=== PATIENT | female | born 1995 | race American Indian/Alaskan Native ===

== ENCOUNTER 2019-09-22 12:06 | Emergency (ER) | payer SELFPAY ==
--- NOTE | 2019-09-22 12:58 | Event Note ---
ED Screening Note ED Screening Note: 23 yo female 19 weeks +back pain This initial assessment/diagnostic orders/clinical plan/treatment(s) is/are subject to change based on patients health status, clinical progression and re- assessment by fellow clinical providers in the ED. Further treatment and workup at subsequent clinical providers discretion. Patient/guardian urged not to elope from the ED as their condition may be serious if not clinically assessed and managed. Initial orders include: UA
[2019-09-22 13:04] VITALS: BP 119/73
[2019-09-22] MEDS ORDERED: ACETAMINOPHEN 500 MG TAB PO ONE (14:42)
[2019-09-22 14:51] LABS: Bacteria,Urine 2+ /HPF (Negative); Mucus,Urine 2+ /HPF
[2019-09-22 15:13] LABS: Hematocrit 31.9 % (30.3-42.9); Hemoglobin 10.8 gm/dl (10.1-14.3); Mean Corpuscular HGB Conc 34 % (30-34); Mean Corpuscular Volume 85 fl (79-97); Platelet Count 179 K/mm3 (140-440); Red Blood Count 3.75 M/mm3 (3.65-5.03); Red Cell Distribution Width 13.7 % (13.2-15.2)
[2019-09-22 15:20] LABS: Color,Urine Yellow (Yellow)
[2019-09-22 15:21] LABS: Bilirubin,Urine Negative (Negative); Blood,Urine Negative (Negative); Urobilinogen,Urine < 2.0 mg/dL (<2.0)
[2019-09-22 15:33] LABS: BUN/Creatinine Ratio 17; Blood Urea Nitrogen 10 mg/dL (7-17); Calcium 8.5 mg/dL (8.4-10.2); Hemolysis Index 2
[2019-09-22] MEDS ORDERED: SODIUM CHLORIDE 0.9% 1000 ML 1,000 ML IV ONE (15:46)
[2019-09-22 16:25] LABS: Anisocytosis 1+; Basophils % (Manual) 0 % (0.0-1.8); Eosinophils % (Manual) 0 % (0.0-4.3); Platelet Estimate Consistent w Auto; Total Cells Counted 100
--- NOTE | 2019-09-22 16:51 | Emergency Department Report ---
ED HPI - General Chief complaint: Back Pain/Injury Stated complaint: BACK PAIN/HEADACHE/19WEEKS PREG Time Seen by Provider: 09/22/19 14:34 Source: patient Mode of arrival: Ambulatory Limitations: No Limitations - History of Present Illness Initial comments: This is a 23-year-old female nontoxic, well nourished in appearance, no acute signs of distress presents to the ED with c/o of lower back pain. Patient that she is currently 19 weeks . Denies any pelvic, abdominal pain or vaginal bleeding. Patient denies any other complaints. Patient denies any radiation of pain. Patient denies any trauma. Denies any bladder or bowel ins tability. Patient denies any urinary symptoms. Denies any fever, chills, nausea, vomiting, headache, stiff neck, chest pain or shortness of breath. Patient denies any numbness or tingling. Denies any allergies. Denies significant past medical history. Patient stated she does see [facility] MD Complaint: other (Back pain) -: days(s) Location: other (Lumbar spine) Radiation: none Severity: mild Severity scale (0 -10): 8 Quality: cramping, aching Consistency: intermittent Improves with: rest Worsens with: movement Associated symptoms: denies: nausea/vomiting, vaginal bleeding, vaginal discharge, abdominal pain, dysuria, headache, vision changes, malaise, dysparuenia, rash, seizure, shortness of breath, syncope, weakness - Related Data Previous Rx's Medication Instructions Recorded Last Taken Type Nitrofurantoin Iroquois/M-Cryst 100 mg PO Q12HR #14 capsule 09/22/19 Unknown Rx [Macrobid CAP] Allergies Allergy/AdvReac Type Severity Reaction Status Date / Time No Known Allergies Allergy Unverified 09/22/19 12:09 ED Review of Systems ROS: Stated complaint: BACK PAIN/HEADACHE/19WEEKS PREG Other details as noted in HPI Constitutional: denies: chills, fever Eyes: denies: eye pain, eye discharge, vision change ENT: denies: ear pain, throat pain Respiratory: denies: cough, shortness of breath, wheezing Cardiovascular: denies: chest pain, palpitations Endocrine: no symptoms reported Gastrointestinal: denies: abdominal pain, nausea, diarrhea Genitourinary: denies: urgency, dysuria, discharge Musculoskeletal: back pain. denies: joint swelling, arthralgia Skin: denies: rash, lesions Neurological: denies: headache, weakness, paresthesias Psychiatric: denies: anxiety, depression Hematological/Lymphatic: denies: easy bleeding, easy bruising ED Past Medical Hx - Past Medical History Previous Medical History?: No - Surgical History Past Surgical History?: No - Social History Smoking Status: Never Smoker Substance Use Type: None - Medications Home Medications: Home Medications Medication Instructions Recorded Confirmed Last Taken Type Nitrofurantoin Iroquois/M-Cryst 100 mg PO Q12HR #14 capsule 09/22/19 Unknown Rx [Macrobid CAP] ED Physical Exam - General Limitations: No Limitations General appearance: alert, in no apparent distress - Head Head exam: Present: atraumatic, normocephalic - Eye Eye exam: Present: normal appearance - Neck Neck exam: Present: normal inspection, full ROM. Absent: tenderness, meningismus, lymphadenopathy - Respiratory Respiratory exam: Present: normal lung sounds bilaterally. Absent: respiratory distress, wheezes, rales, rhonchi, stridor, chest wall tenderness, accessory muscle use, decreased breath sounds, prolonged expiratory - Cardiovascular Cardiovascular Exam: Present: regular rate, normal rhythm, normal heart sounds. Absent: bradycardia, tachycardia, irregular rhythm, systolic murmur, diastolic murmur, rubs, gallop - GI/Abdominal GI/Abdominal exam: Present: soft, normal bowel sounds. Absent: distended, tenderness, guarding, rebound, rigid, diminished bowel sounds - Extremities Exam Extremities exam: Present: normal inspection, full ROM - Back Exam Back exam: Present: normal inspection, full ROM, paraspinal tenderness (Lumbar paraspinal). Absent: tenderness, CVA tenderness (R), CVA tenderness (L), muscle spasm, vertebral tenderness, rash noted - Expanded Back Exam Expanded Back exam: Absent: saddle anesthesia Back exam: Negative Straight Leg Raising: Left, Right - Neurological Exam Neurological exam: Present: alert, oriented X3, normal gait - Psychiatric Psychiatric exam: Present: normal affect, normal mood - Skin Skin exam: Present: warm, dry, intact, normal color. Absent: rash ED Course Vital Signs 09/22/19 13:02 Temperature 98.6 F Pulse Rate 90 Respiratory 18 Rate Blood Pressure 119/73 O2 Sat by Pulse 98 Oximetry - Reevaluation(s) Reevaluation #1: 02/17/20 16:51 Patient is speaking in full sentences with no signs of distress noted. ED Medical Decision Making - Lab Data Result diagrams: 09/22/19 14:51 09/22/19 14:51 - Medical Decision Making This is a 23-year-old female that presents with back pain during . Patient is stable was examined by me. There is no spinal tenderness. There is no cauda equina syndrome during examination. No bladder or bowel instability. Normal abdominal exam. US OB obtained and dictated by the radiologist. Patient notified of the US report with no questions noted by the patient. Ua obtained. Quantative serum test obtained. Labs within normal limits. Patient was instructed f/u with [facility] in 3-5 days or if symptoms worsen and continue return to emergency room as soon as possible. At time of discharge, the patient does not seem toxic or ill in appearance. No acute signs of distress noted. Patient agrees to discharge treatment plan of care. No further questions noted by the patient. This chart is dictated with using [employer] Dictation Program Critical care attestation.: If time is entered above; I have spent that time in minutes in the direct care of this critically ill patient, excluding procedure time. ED Disposition Clinical Impression: Back pain during UTI (urinary tract infection) Qualifiers: Urinary tract infection type: acute cystitis Hematuria presence: without hematuria Qualified Code(s): N30.00 - Acute cystitis without hematuria Disposition: - TO HOME OR SELFCARE Is pt being admited?: No Does the pt Need Aspirin: No Condition: Stable Instructions: Urinary Tract Infection in Women (ED) Additional Instructions: Follow-up with a OBGYN doctor in 3-5 days or if symptoms worsen and continue return to the emergency department as soon as possible. Prescriptions: Nitrofurantoin Iroquois/M-Cryst [Macrobid CAP] 100 mg PO Q12HR #14 capsule Referrals: GODFREY THOMSON MD [Primary Care Provider] - 3-5 Days PRIMARY CAREMD [Referring] - 3-5 Days KIM SÁNCHEZ MD [Staff Physician] - 3-5 Days [facility] [Provider Group] - 3-5 Days Forms: Work/School Release Form(ED)
--- NOTE | 2019-09-22 19:07 | Ultrasound Report ---
TRANSABDOMINAL AND TRANSVAGINAL OB PELVIC ULTRASOUND INDICATION / CLINICAL INFORMATION: Back pain. COMPARISON: None available. FINDINGS: Transabdominal: There is a single intrauterine with an estimated sonographic gestational ag e of 18 weeks 5 days and an EDC of 02/18/2020. Clinical dates are 19 weeks 0 days. The heart ra te is 135 bpm. presentation is breech. Amniotic fluid volume is normal. The placenta is located posteriorly, is grade 0 and is free of the os. The uterine cervix measures 3.8 cm in length. There is mild funneling with the internal os measuring 5.3 mm in width. There is a minimal amount of fluid in the endocervical canal. The intracranial and spinal anatomy are normal. The stomach, kidneys, urinary bladder and diaphragm are normal. A 4 chambered heart view is seen. There is a three-vessel umbilical cord which inserts normally on t he abdomen. No anomalies are identified. Neither ovary is seen. IMPRESSION: 1. Single viable 18 week 5 day intrauterine . 2. The cervix measures 3.8 cm in length and demonstrates slight funneling with minimal fluid in the e ndocervical canal. No evidence of oligohydramnios. Signer Name: Konstantin Eason MD Signed: 09/22/2019 7:02 PM Workstation Name: [id number]
== END 2019-09-22 19:15 | disposition home or self-care (01) ==
LOC: ED 12:06
DX: O23.42 Unspecified infection of urinary tract in pregnancy, second trimester (principal); Z3A.19 19 weeks gestation of pregnancy
CPT/HCPCS: 36415; 76805; 76817; 80048; 81001; 84702; 85007; 85025; 87086; 99284; J7030

== ENCOUNTER 2021-01-17 15:04 | Observation (INO) | payer MEDICAID ==
[2021-01-17] MEDS ORDERED: SIMETHICONE 80 MG CHEW TAB PO PRN (15:21)
[2021-01-17] MEDS ORDERED: DOCUSATE SODIUM 100 MG CAP PO PRN (15:21)
[2021-01-17] MEDS ORDERED: diphenhydrAMINE 25 MG CAP PO PRN (15:21)
[2021-01-17] MEDS ORDERED: SODIUM CHLORIDE NASAL SPRAY 44ML NS PRN (15:21)
[2021-01-17] MEDS ORDERED: ONDANSETRON 4 MG/2 ML INJ IV PRN (15:21)
[2021-01-17] MEDS ORDERED: ACETAMINOPHEN 325 MG TAB PO PRN (15:21)
[2021-01-17] MEDS ORDERED: BETAMET ACET/BETAMET NA PH 6 MG/ML INJ 5 ML MDV IM SCH (16:00)
[2021-01-17 18:52] LABS: Basophils % (Auto) 0.3 % (0.0-1.8); Eosinophils % (Auto) 0.4 % (0.0-4.3); Hematocrit 30.5 % (30.3-42.9); Hemoglobin 10.3 gm/dl (10.1-14.3); Lymphocytes # (Auto) 1.5 K/mm3 (1.2-5.4); Lymphocytes % (Auto) 15.4 % (13.4-35.0); Mean Corpuscular HGB Conc 34 % (30-34); Mean Corpuscular Volume 85 fl (79-97); Monocytes # (Auto) 0.6 K/mm3 (0.0-0.8); Monocytes % (Auto) 6.4 % (0.0-7.3); Platelet Count 239 K/mm3 (140-440); Red Cell Distribution Width 13.5 % (13.2-15.2)
[2021-01-17] MEDS ORDERED: LACTATED RINGERS 1,000 ML IV ONE (19:05)
--- NOTE | 2021-01-17 22:18 | History and Physical Report ---
History of Present Illness Date of examination: 01/17/21 Date of admission: 01/17/21 15:21 Chief complaint: sent from [facility] clinic for elevated MCA History of present illness: Pt is a 25 year old CHRISTINE 03/09/21 at 32w5d presents from [facility] with report from Dr Arora of elevated MCA doppler and suspicion of anemia with instructions to administer two doses of betamethasone while on continuous monitoring, then return to [facility] on 01/19/21 for repeat MCA doppler study. She reports movement, and denies vaginal bleeding. She does report irregular contractions. She has had care at [facility] with comanagement by [facility] secondary to alpha thalassemia carrier status (and father of baby also an alpha thalassemia carrier, declines amniocentesis), h/o preeclampsia in prior . Her GBS status is unknown. Past History Past Medical History: other (per HPI, h/o preeclampsia ) Past Surgical History: denies: no surgical history Family/Genetic History: diabetes Social history: no significant social history - Obstetrical History Expected Date of Delivery: 03/09/21 Actual Gestation: 32 Week(s) 5 Day(s) : 2 Para: 1 Hx # Term Pregnancies: 1 Number of Pregnancies: 0 Spontaneous Abortions: 0 Induced : 0 Number of Living Children: 1 Medications and Allergies Allergies Allergy/AdvReac Type Severity Reaction Status Date / Time No Known Allergies Allergy Unverified 09/22/19 12:09 Home Medications Medication Instructions Recorded Confirmed Last Taken Type Aspirin [Adult Aspirin] 81 mg PO 01/17/21 01/15/21 22:00 History 1 Vit-Fe Fumar-FA [ 1 tab PO QDAY 01/17/21 01/17/21 01/16/21 10:00 History Vitamin] Promethazine [Phenergan] 25 mg PO Q8HR PRN 01/17/21 01/17/21 01/15/21 22:00 History Vitamin B-6 1 tab PO DAILY 01/17/21 01/17/21 01/17/21 10:00 History Active Meds: Active Medications Acetaminophen (Acetaminophen 325 Mg Tab) 650 mg PO Q4H PRN PRN Reason: Pain MILD(1-3)/Fever >100.5/DUMONT Betamethasone Acet/Betameth SodPhos (Betamet Acet/Betamet Na Ph 6 Mg/Ml Inj 5 Ml Mdv) 12 mg IM Q24H FERDINAND Stop: 01/18/21 16:01 Last Admin: 01/17/21 18:17 Dose: 12 mg Documented by: Diphenhydramine HCl (Diphenhydramine 25 Mg Cap) 25 mg PO Q6H PRN PRN Reason: Itching Docusate Sodium (Docusate Sodium 100 Mg Cap) 100 mg PO Q12H PRN PRN Reason: Constipation Multivitamins/Iron/Calcium ( Pjj90-Qa Fumarate-Folic Acid Vit Tab) 1 each PO QDAY FERDINAND Ondansetron HCl (Ondansetron 4 Mg/2 Ml Inj) 4 mg IV Q6H PRN PRN Reason: Nausea And Vomiting Simethicone (Simethicone 80 Mg Chew Tab) 80 mg PO Q6H PRN PRN Reason: Gas pain Sodium Chloride (Sodium Chloride Nasal [place] 44ml) 2 spray NS Q4H PRN PRN Reason: Congestion Review of Systems All systems: negative - Vital Signs Vital signs: Vital Signs Pulse BP 110 H 127/69 01/17/21 15:50 01/17/21 15:50 Temp Pulse Resp BP Pulse Ox 99.3 F 85 18 124/78 98 01/17/21 17:47 01/17/21 22:11 01/17/21 17:47 01/17/21 19:12 01/17/21 22:11 - Physical Exam Breasts: Positive: deferred Abdomen: Positive: soft (gravid, obese ) Uterus: Positive: enlarged (gravid ) Extremities: Positive: normal - Obstetrical FHR: auscultation normal Uterine Contraction Pattern: Absent Uterine Tone Measurement Phase: Resting Results Result Diagrams: 01/17/21 18:27 Abnormal lab results 01/17/21 Range/Units 18:27 RBC 3.60 L (3.65-5.03) M/mm3 Seg Neutrophils % 77.5 H (40.0-70.0) % All other labs normal. Assessment and Plan A: IUP at 32w5d Elevated MCA doppler today at [facility] office Pt and her partner are alpha thalassemia carriers with suspicion for anemia, pt declines amniocentesis h/o preeclampsia in prior Obesity GBS status unknown P: Admit to antepartum service Administer 2 doses of betamethasone per protocol Continuous monitoring Plan for discharge after both doses of betamethasone with reassuring status and repeat MCA dopplers at [facility] on Sun01/19/21
[2021-01-17 23:02] LABS: Bacteria,Urine 2+ /HPF (Negative); Bilirubin,Urine NEG (Negative); Blood,Urine NEG (Negative); Color,Urine Yellow (Yellow); Hyaline Casts,Urine 1 /LPF; Mucus,Urine FEW /HPF; Protein,Urine <15 mg/dL mg/dL (Negative); Urobilinogen,Urine < 2.0 mg/dL (<2.0)
[2021-01-18] MEDS ORDERED: PRENATAL VIT27-FE FUMARATE-FOLIC ACID VIT TAB PO SCH (10:00)
[2021-01-18 13:01] VITALS: BP 127/72
--- NOTE | 2021-01-18 13:01 | Progress Note ---
Assessment and Plan - Patient Problems (1) Gestational hypertension Current Visit: No Status: Acute Plan to address problem: patient will schedule followup with [facility] this week will come back for 2nd dose Subjective - Subjective Date of service: 01/18/21 Interval history: Patient without complaints. Patient is receiving 2nd steroid dose this afternoon. Patient reports: no new complaints Objective - Vital Signs Vital Signs: Vital Signs - 12hr 01/18/21 01/18/21 01/18/21 01:01 01:06 01:11 Temperature Pulse Rate 86 87 81 Respiratory Rate O2 Sat by Pulse 98 97 97 Oximetry 01/18/21 01/18/21 01/18/21 01:16 01:21 01:26 Temperature Pulse Rate 77 79 90 Respiratory Rate O2 Sat by Pulse 97 97 97 Oximetry 01/18/21 01/18/21 01/18/21 01:31 01:36 01:41 Temperature Pulse Rate 81 79 84 Respiratory Rate O2 Sat by Pulse 99 96 97 Oximetry 01/18/21 01/18/21 01/18/21 01:46 01:51 01:56 Temperature Pulse Rate 84 86 82 Respiratory Rate O2 Sat by Pulse 97 97 97 Oximetry 01/18/21 01/18/21 01/18/21 02:01 02:06 02:11 Temperature Pulse Rate 86 85 90 Respiratory Rate O2 Sat by Pulse 97 97 97 Oximetry 01/18/21 01/18/21 01/18/21 02:16 02:21 02:26 Temperature Pulse Rate 86 84 82 Respiratory Rate O2 Sat by Pulse 98 97 97 Oximetry 01/18/21 01/18/21 01/18/21 02:31 02:36 02:41 Temperature Pulse Rate 84 90 97 H Respiratory Rate O2 Sat by Pulse 95 97 98 Oximetry 01/18/21 01/18/21 01/18/21 02:46 02:51 02:56 Temperature Pulse Rate 90 85 87 Respiratory Rate O2 Sat by Pulse 97 97 98 Oximetry 01/18/21 01/18/21 01/18/21 03:01 03:06 03:11 Temperature Pulse Rate 87 92 H 89 Respiratory Rate O2 Sat by Pulse 98 99 98 Oximetry 01/18/21 01/18/21 01/18/21 03:16 03:21 03:26 Temperature Pulse Rate 86 80 78 Respiratory Rate O2 Sat by Pulse 98 97 97 Oximetry 01/18/21 01/18/21 01/18/21 03:31 03:36 03:41 Temperature Pulse Rate 94 H 83 92 H Respiratory Rate O2 Sat by Pulse 97 97 96 Oximetry 01/18/21 01/18/21 01/18/21 03:46 03:51 03:56 Temperature Pulse Rate 84 90 92 H Respiratory Rate O2 Sat by Pulse 96 96 97 Oximetry 01/18/21 01/18/21 01/18/21 04:01 04:06 04:11 Temperature Pulse Rate 92 H 103 H 79 Respiratory Rate O2 Sat by Pulse 96 98 97 Oximetry 01/18/21 01/18/21 01/18/21 04:16 04:21 04:26 Temperature Pulse Rate 82 81 77 Respiratory Rate O2 Sat by Pulse 97 96 97 Oximetry 01/18/21 01/18/21 01/18/21 04:31 04:36 04:41 Temperature Pulse Rate 78 81 82 Respiratory Rate O2 Sat by Pulse 98 96 96 Oximetry 01/18/21 01/18/21 01/18/21 04:46 04:51 04:55 Temperature Pulse Rate 87 96 H 102 H Respiratory Rate O2 Sat by Pulse 97 99 88 Oximetry 01/18/21 01/18/21 01/18/21 04:56 05:01 05:06 Temperature Pulse Rate 95 H 77 75 Respiratory Rate O2 Sat by Pulse 82 L 100 99 Oximetry 01/18/21 01/18/21 01/18/21 05:11 05:16 05:21 Temperature Pulse Rate 75 87 82 Respiratory Rate O2 Sat by Pulse 99 98 99 Oximetry 01/18/21 01/18/21 01/18/21 05:26 05:31 05:36 Temperature Pulse Rate 78 84 78 Respiratory Rate O2 Sat by Pulse 98 98 99 Oximetry 01/18/21 01/18/21 01/18/21 05:41 05:46 05:51 Temperature Pulse Rate 81 92 H 79 Respiratory Rate O2 Sat by Pulse 97 99 98 Oximetry 01/18/21 01/18/21 01/18/21 05:56 06:01 06:06 Temperature Pulse Rate 88 84 63 Respiratory Rate O2 Sat by Pulse 99 98 98 Oximetry 01/18/21 01/18/21 01/18/21 06:11 06:16 06:21 Temperature Pulse Rate 62 80 75 Respiratory Rate O2 Sat by Pulse 100 98 97 Oximetry 01/18/21 01/18/2101/18/21 06:26 06:31 06:36 Temperature Pulse Rate 72 67 76 Respiratory Rate O2 Sat by Pulse 99 100 98 Oximetry 01/18/21 01/18/21 01/18/21 06:41 06:46 06:51 Temperature Pulse Rate 76 83 84 Respiratory Rate O2 Sat by Pulse 98 99 98 Oximetry 01/18/21 01/18/21 01/18/21 06:56 07:01 07:06 Temperature Pulse Rate 86 79 79 Respiratory Rate O2 Sat by Pulse 99 99 100 Oximetry 01/18/21 01/18/21 01/18/21 07:10 07:11 07:16 Temperature 98.1 F Pulse Rate 64 78 Respiratory 18 Rate O2 Sat by Pulse 99 98 Oximetry 01/18/21 01/18/21 01/18/21 07:21 07:26 07:31 Temperature Pulse Rate 84 77 71 Respiratory Rate O2 Sat by Pulse 97 100 100 Oximetry 01/18/21 01/18/21 01/18/21 07:36 07:41 07:46 Temperature Pulse Rate 77 89 90 Respiratory Rate O2 Sat by Pulse 100 99 97 Oximetry 01/18/21 01/18/21 01/18/21 07:51 07:56 08:01 Temperature Pulse Rate 75 89 84 Respiratory Rate O2 Sat by Pulse 99 99 100 Oximetry 01/18/21 01/18/21 01/18/21 08:06 08:11 08:16 Temperature Pulse Rate 99 H 90 83 Respiratory Rate O2 Sat by Pulse 99 97 98 Oximetry 01/18/21 01/18/21 01/18/21 08:21 08:26 08:31 Temperature Pulse Rate 91 H 78 71 Respiratory Rate O2 Sat by Pulse 97 99 99 Oximetry 01/18/21 01/18/21 01/18/21 08:39 08:44 08:49 Temperature Pulse Rate 69 83 79 Respiratory Rate O2 Sat by Pulse 78 L 100 97 Oximetry 01/18/21 01/18/21 01/18/21 08:54 08:59 09:04 Temperature Pulse Rate 86 83 87 Respiratory Rate O2 Sat by Pulse 97 97 97 Oximetry 01/18/21 01/18/21 01/18/21 09:09 09:14 09:19 Temperature Pulse Rate 81 79 88 Respiratory Rate O2 Sat by Pulse 96 96 97 Oximetry 01/18/21 01/18/21 01/18/21 09:24 09:29 09:34 Temperature Pulse Rate 81 80 79 Respiratory Rate O2 Sat by Pulse 96 98 97 Oximetry 01/18/21 01/18/21 01/18/21 09:39 09:44 09:49 Temperature Pulse Rate 88 91 H 89 Respiratory Rate O2 Sat by Pulse 97 100 98 Oximetry 01/18/21 01/18/21 01/18/21 09:54 09:59 10:04 Temperature Pulse Rate 80 86 81 Respiratory Rate O2 Sat by Pulse 97 97 97 Oximetry 01/18/21 01/18/21 01/18/21 10:09 10:14 10:19 Temperature Pulse Rate 85 97 H 91 H Respiratory Rate O2 Sat by Pulse 97 97 96 Oximetry 01/18/21 01/18/21 01/18/21 10:24 10:29 10:34 Temperature Pulse Rate 91 H 101 H 97 H Respiratory Rate O2 Sat by Pulse 96 96 96 Oximetry 01/18/21 01/18/21 01/18/21 10:39 10:44 10:49 Temperature Pulse Rate 93 H 86 81 Respiratory Rate O2 Sat by Pulse 96 96 97 Oximetry 01/18/21 01/18/21 01/18/21 10:54 10:59 11:04 Temperature Pulse Rate 84 89 69 Respiratory Rate O2 Sat by Pulse 99 97 96 Oximetry 01/18/21 01/18/21 01/18/21 11:09 11:14 11:19 Temperature Pulse Rate 88 81 85 Respiratory Rate O2 Sat by Pulse 96 95 97 Oximetry 01/18/21 01/18/21 01/18/21 11:24 11:29 11:34 Temperature Pulse Rate 84 89 83 Respiratory Rate O2 Sat by Pulse 99 100 100 Oximetry 01/18/21 01/18/21 01/18/21 11:39 11:44 11:49 Temperature Pulse Rate 95 H 77 87 Respiratory Rate O2 Sat by Pulse 100 99 99 Oximetry 01/18/21 01/18/21 01/18/21 11:54 11:59 12:04 Temperature Pulse Rate 93 H 92 H 83 Respiratory Rate O2 Sat by Pulse 91 99 100 Oximetry 01/18/21 01/18/21 01/18/21 12:05 12:09 12:11 Temperature Pulse Rate 74 94 H 88 Respiratory Rate O2 Sat by Pulse 73 L 100 91 Oximetry 0601/18/21 01/18/21 12:14 12:17 12:19 Temperature Pulse Rate 90 92 H 94 H Respiratory Rate O2 Sat by Pulse 99 88 100 Oximetry 01/18/21 01/18/21 01/18/21 12:24 12:28 12:29 Temperature Pulse Rate 91 H 92 H 96 H Respiratory Rate O2 Sat by Pulse 100 90 99 Oximetry 01/18/21 01/18/21 01/18/21 12:34 12:38 12:39 Temperature Pulse Rate 88 99 H 93 H Respiratory Rate O2 Sat by Pulse 100 92 93 Oximetry 01/18/21 01/18/21 12:44 12:49 Temperature Pulse Rate 85 91 H Respiratory Rate O2 Sat by Pulse 100 99 Oximetry - Labs Labs: Abnormal Labs 01/17/21 18:27 RBC 3.60 L Seg Neutrophils % 77.5 H Laboratory Results - last 24 hr 01/17/21 01/17/21 01/17/21 18:27 18:27 22:33 WBC 9.8 RBC 3.60 L Hgb 10.3 Hct 30.5 MCV 85 MCH 29 MCHC 34 RDW 13.5 Plt Count 239 Lymph % (Auto) 15.4 [place] % (Auto) 6.4 Eos % (Auto) 0.4 Baso % (Auto) 0.3 Lymph # (Auto) 1.5 [place] # (Auto) 0.6 Eos # (Auto) 0.0 Baso # (Auto) 0.0 Seg Neutrophils % 77.5 H Seg Neutrophils # 7.6 Urine Color Yellow Urine Turbidity Clear Urine pH 7.0 Ur Specific [place] 1.016 Urine Protein <15 mg/dl Urine Glucose (UA) 50 Urine Ketones Neg Urine Blood Neg Urine Nitrite Neg Urine Bilirubin Neg Urine Urobilinogen < 2.0 Ur Leukocyte Esterase Neg Urine WBC (Auto) 1.0 Urine RBC (Auto) 1.0 U Epithel Cells (Auto) 7.0 Urine Bacteria (Auto) 2+ Hyaline Casts 1 Urine Mucus Few Blood Type O POSITIVE Antibody Screen Negative
--- NOTE | 2021-01-18 13:03 | Discharge Summary ---
Providers - Providers Date of Admission: 01/17/21 15:21 Date of discharge: 01/18/21 Attending physician: JOJO ENGLAND Primary care physician: JOJO ENGLAND Hospitalization Reason for admission: other ( anemia) Procedure: other ( monitoring and steroids) Discharge diagnosis: other ( anemia) Hospital course: Patient admitted for steroids and monitoring. Condition at discharge: Good Disposition: DC-01 TO HOME OR SELFCARE - Discharge Diagnoses (1) Gestational hypertension Status: Acute Plan - Provider Discharge Summary Diet: routine Instructions: routine Additional instructions: [] Smoking cessation referral if applicable(refer to patient education folder for contact #) [] Refer to [facility] Booklet Call your doctor immediately for: * Fever > 100.5 * Heavy vaginal bleeding ( >1 pad per hour) * Severe persistent headache * Shortness of breath * schedule followup this week - Follow up plan
== END 2021-01-18 13:35 | disposition home or self-care (01) ==
LOC: TRG 15:04 → LD 15:07 → TRG 15:21
PROVIDERS: ADMIT Obstetrics & Gynecology; ATTEND Obstetrics & Gynecology
DX: O13.3 Gestational [pregnancy-induced] hypertension without significant proteinuria, third trimester (principal); O62.9 Abnormality of forces of labor, unspecified; Z3A.32 32 weeks gestation of pregnancy; Z79.82 Long term (current) use of aspirin
CPT/HCPCS: 36415; 81001; 85025; 86850; 86900; 86901; 96372; G0378; J0702; J7120

== ENCOUNTER 2021-01-18 17:33 | Outpatient (CLI) | payer MEDICAID ==
[2021-01-18] MEDS ORDERED: LACTATED RINGERS 500 ML IV ONE (18:03)
[2021-01-18] MEDS ORDERED: BETAMET ACET/BETAMET NA PH 6 MG/ML INJ 5 ML MDV IM ONE (18:30)
== END 2021-01-18 18:15 | disposition home or self-care (01) ==
LOC: TRG 17:33 → APU 17:35 → TRG 18:15
PROVIDERS: ATTEND Obstetrics & Gynecology
DX: O47.03 False labor before 37 completed weeks of gestation, third trimester (principal); Z3A.33 33 weeks gestation of pregnancy; Z87.891 Personal history of nicotine dependence
CPT/HCPCS: 96372; J0702

== ENCOUNTER 2021-02-10 15:12 | Inpatient (IN) | payer MEDICAID ==
[2021-02-10] MEDS ORDERED: fentaNYL 100 MCG/2 ML INJ IV PRN (16:59)
[2021-02-10] MEDS ORDERED: METHYLERGONOVINE MALEATE 0.2 MG/ML VIAL IM PRN (16:59)
[2021-02-10] MEDS ORDERED: ONDANSETRON 4 MG/2 ML INJ IV PRN (16:59)
[2021-02-10] MEDS ORDERED: OXYTOCIN 10 UNIT/1 ML INJ IM PRN (16:59)
[2021-02-10] MEDS ORDERED: AMPICILLIN/NS 2 GM/100 ML 2 GM/100 ML BAG IV ONE (16:59)
[2021-02-10] MEDS ORDERED: TERBUTALINE 1 MG/1 ML INJ SUB-Q PRN (16:59)
[2021-02-10] MEDS ORDERED: BUTORPHANOL 2 MG/1 ML INJ IV PRN (16:59)
[2021-02-10] MEDS ORDERED: LOPERAMIDE 2 MG CAP PO PRN (16:59)
[2021-02-10] MEDS ORDERED: MINERAL OIL 30 ML ORAL LIQD PO PRN (16:59)
[2021-02-10] MEDS ORDERED: CARBOPROST TROMETHAMINE 250 MCG/1 ML INJ IM PRN (16:59)
[2021-02-10] MEDS ORDERED: ePHEDrine SULFATE 50 MG/1 ML INJ IV PRN (16:59)
--- NOTE | 2021-02-10 17:06 | History and Physical Report ---
History of Present Illness Date of examination: 02/10/21 Date of admission: 02/10/21 15:12 Chief complaint: IOL secondary to anemia History of present illness: 25 yo, @ 37 weeks gestation, initiated care with [facility] at 11 weeks gestation. 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 Care was co-managed by [facility] specialist. She presents to [facility] today for scheduled IOL. Reports positive FM. Denies VB or LOF. Labs: O+, antibody negative; Rubella immune; HBsAg negative; GC/ Chlamydia negative; HIV negative; Panorama low risk; 1 hr gtt - 103; HSV2 negative; GBS positive. 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 denies: smoking, alcohol abuse, prescription drug abuse, IV drug use - Obstetrical History Expected Date of Delivery: 03/03/21 Actual Gestation: 37 Week(s) 0 Day(s) : 2 Para: 1 Hx # Term Pregnancies: 1 Number of Pregnancies: 0 Spontaneous Abortions: 0 Induced : 0 Number of Living Children: 1 #1 Gender: Female year: 2019 Birthweight: 3.374 kg Method of Delivery: Vaginal Gestational age at delivery: 40 Complications: none Medications and Allergies Allergies Allergy/AdvReac Type Severity Reaction Status Date / Time No Known Allergies Allergy Verified 01/18/21 18:02 Home Medications Medication Instructions Recorded Confirmed Last Taken Type Aspirin [Adult Aspirin] 81 mg PO 01/17/21 01/15/21 22:00 History 1 Vit-Fe Fumar-FA [ 1 tab PO QDAY 01/17/21 01/17/21 01/16/21 10:00 History Vitamin] Promethazine [Phenergan] 25 mg PO Q8HR PRN 01/17/21 01/17/21 01/15/21 22:00 History Vitamin B-6 1 tab PO DAILY 01/17/21 01/18/21 Unknown History Review of Systems All systems: negative - Vital Signs Vital signs: Vital Signs Pulse BP 100 H 117/76 02/10/21 16:05 02/10/21 16:05 Temp Pulse Resp BP Pulse Ox 90 117/76 98 02/10/21 17:02 02/10/21 16:05 02/10/21 17:02 - Physical Exam Breasts: Positive: normal Cardiovascular: Regular rate Lungs: Positive: Normal air movement Abdomen: Positive: other (gravid) Uterus: Positive: enlarged (S=D) Deep Tendon Reflex Grade: Normal +2 - Obstetrical FHR: category 1 Uterine Contraction Monitor Mode: External Cervical Dilatation: 2 (per RN) Cervical Effacement Percentage: 70 station: -3 Uterine Contraction Frequency (min): 3-4 Uterine Contraction Pattern: Irregular Uterine Tone Measurement Phase: Resting Uterine Contraction Intensity: Mild Results Result Diagrams: 02/10/21 16:50 All other labs normal. Assessment and Plan - Patient Problems (1) Encounter for induction of labor Current Visit: Yes Status: Acute Plan to address problem: Admit to L & D Inform peds team of suspected anemia and have at bedside for delivery Initiate Pitocin if ctxs space out Pain meds as needed per order Anticipate (2) anemia affecting management of mother in third trimester Current Visit: Yes Status: Acute (3) Positive GBS test Current Visit: Yes Status: Acute Plan to address problem: Initiate GBS prophylaxis
[2021-02-10 17:31] LABS: Hematocrit 30.1 % (30.3-42.9); Hemoglobin 10.3 gm/dl (10.1-14.3); Mean Corpuscular HGB Conc 34 % (30-34); Mean Corpuscular Volume 84 fl (79-97); Platelet Count 248 K/mm3 (140-440); Red Blood Count 3.61 M/mm3 (3.65-5.03); Red Cell Distribution Width 13.4 % (13.2-15.2)
[2021-02-10] MEDS: LACTATED RINGERS 1,000 ML IV SCH (17:45)
[2021-02-10] MEDS: OXYTOCIN DRIP 30 UNITS/500 ML BAG IV SCH (17:45)
[2021-02-10] MEDS ORDERED: LIDOCAINE (2%) 20 MG/1 ML VIAL 20 ML MDV INFILTRATI ONE (17:59)
[2021-02-10] MEDS ORDERED: miSOPROStol 200 MCG TAB PR PRN (17:59)
[2021-02-10] MEDS ORDERED: OXYTOCIN DRIP 30 UNITS/500 ML BAG IV SCH (18:00)
[2021-02-10] MEDS: AMPICILLIN/NS 1 GM/50 ML 1 GM/50 ML BAG IV SCH (22:23)
[2021-02-11] MEDS: AMPICILLIN/NS 1 GM/50 ML 1 GM/50 ML BAG IV SCH ×4 (02:20→15:47)
[2021-02-11] MEDS ORDERED: SODIUM CHLORIDE 0.9% 500 ML 500 ML IV SCH (08:00)
[2021-02-11] MEDS: OXYTOCIN DRIP 30 UNITS/500 ML BAG IV SCH (09:03)
[2021-02-11] MEDS: LACTATED RINGERS 1,000 ML IV SCH ×3 (09:09→20:24)
[2021-02-11] MEDS: miSOPROStol 25 MCG TAB PO SCH ×2 (15:47→20:20)
--- NOTE | 2021-02-11 15:59 | Progress Note ---
Assessment and Plan A: IUP at 37w1d Elevated MCA Dopplers Suspected Anemia Unfavorable Cervix Obesity GBS Positive on Ampicillin H/o Preeclampsia P: Discontinue pitocin Begin cervical ripening with cytotec Closely monitor maternal and status Subjective - Subjective Date of service: 02/11/21 Principal diagnosis: IUP at 37w1d, Elevated MCA Dopplers, Suspected Anemia Interval history: Pt comfortable with contractions. No other complaints. Patient reports: no new complaints Objective - Vital Signs Vital Signs: Vital Signs - 12hr 02/11/21 02/11/21 02/11/21 04:02 04:07 04:13 Temperature Pulse Rate 58 L 64 72 Respiratory Rate Blood Pressure Blood Pressure [Right] O2 Sat by Pulse 99 99 99 Oximetry 02/11/21 02/11/21 02/11/21 04:15 04:17 04:23 Temperature 98 F Pulse Rate 69 62 Respiratory 20 Rate Blood Pressure Blood Pressure [Right] O2 Sat by Pulse 99 96 Oximetry 02/11/21 02/11/21 02/11/21 04:26 04:28 04:33 Temperature Pulse Rate 86 65 88 Respiratory Rate Blood Pressure Blood Pressure [Right] O2 Sat by Pulse 91 86 100 Oximetry 02/11/21 02/11/21 02/11/21 04:38 04:43 04:47 Temperature Pulse Rate 71 90 63 Respiratory Rate Blood Pressure Blood Pressure [Right] O2 Sat by Pulse 99 99 99 Oximetry 02/11/21 02/11/21 02/11/21 04:53 04:57 04:59 Temperature Pulse Rate 60 60 75 Respiratory Rate Blood Pressure Blood Pressure [Right] O2 Sat by Pulse 100 96 94 Oximetry 02/11/21 02/11/21 02/11/21 05:02 05:08 05:12 Temperature Pulse Rate 66 62 62 Respiratory Rate Blood Pressure Blood Pressure [Right] O2 Sat by Pulse 99 97 93 Oximetry 02/11/21 02/11/21 02/11/21 05:13 05:18 05:22 Temperature Pulse Rate 70 72 74 Respiratory Rate Blood Pressure Blood Pressure [Right] O2 Sat by Pulse 96 99 99 Oximetry 02/11/21 02/11/21 02/11/21 05:27 05:29 05:32 Temperature Pulse Rate 69 51 L 70 Respiratory Rate Blood Pressure Blood Pressure [Right] O2 Sat by Pulse 99 67 L 98 Oximetry 02/11/21 02/11/2121 05:36 05:38 05:42 Temperature Pulse Rate 63 73 78 Respiratory Rate Blood Pressure Blood Pressure [Right] O2 Sat by Pulse 84 99 99 Oximetry 02/11/21 02/11/21 02/11/21 05:48 05:53 05:56 Temperature Pulse Rate 75 67 75 Respiratory Rate Blood Pressure Blood Pressure [Right] O2 Sat by Pulse 99 98 77 L Oximetry 02/11/21 02/11/21 02/11/21 05:58 06:03 06:08 Temperature Pulse Rate 71 58 L 66 Respiratory Rate Blood Pressure Blood Pressure [Right] O2 Sat by Pulse 100 100 100 Oximetry 02/11/21 02/11/21 02/11/21 06:13 06:16 06:19 Temperature Pulse Rate 79 50 L Respiratory Rate Blood Pressure 128/87 Blood Pressure [Right] O2 Sat by Pulse 100 91 Oximetry 02/11/21 02/11/21 02/11/21 06:21 06:22 06:30 Temperature Pulse Rate 60 71 58 L Respiratory Rate Blood Pressure Blood Pressure [Right] O2 Sat by Pulse 97 81 L 86 Oximetry 02/11/21 02/11/21 02/11/21 06:31 06:37 06:41 Temperature Pulse Rate 63 51 L Respiratory Rate Blood Pressure Blood Pressure [Right] O2 Sat by Pulse 97 89 74 L Oximetry 02/11/21 02/11/21 02/11/21 06:42 06:47 06:49 Temperature Pulse Rate 62 59 L 91 H Respiratory Rate Blood Pressure Blood Pressure [Right] O2 Sat by Pulse 86 100 90 Oximetry 02/11/21 02/11/21 02/11/21 06:52 06:57 06:59 Temperature Pulse Rate 58 L 72 84 Respiratory Rate Blood Pressure Blood Pressure [Right] O2 Sat by Pulse 98 100 78 L Oximetry 02/11/21 02/11/21 02/11/21 07:01 07:08 07:09 Temperature Pulse Rate 67 89 90 Respiratory Rate Blood Pressure Blood Pressure [Right] O2 Sat by Pulse 100 92 76 L Oximetry 02/11/21 02/11/21 02/11/21 07:13 07:14 07:19 Temperature Pulse Rate 67 71 68 Respiratory Rate Blood Pressure Blood Pressure [Right] O2 Sat by Pulse 93 100 100 Oximetry 02/11/21 02/11/21 02/11/21 07:24 07:25 07:28 Temperature Pulse Rate 65 52 L 66 Respiratory Rate Blood Pressure 125/75 Blood Pressure [Right] O2 Sat by Pulse 100 94 Oximetry 02/11/21 02/11/21 02/11/21 07:29 07:34 08:56 Temperature 98.4 F Pulse Rate 74 73 96 H Respiratory Rate Blood Pressure 138/81 Blood Pressure [Right] O2 Sat by Pulse 100 100 100 Oximetry 02/11/21 02/11/21 02/11/21 09:01 09:02 09:06 Temperature Pulse Rate 95 H 91 H 81 Respiratory 14 Rate Blood Pressure Blood Pressure 138/81 [Right] O2 Sat by Pulse 99 99 99 Oximetry 02/11/21 02/11/21 02/11/21 09:11 09:16 09:21 Temperature Pulse Rate 79 92 H 91 H Respiratory Rate Blood Pressure Blood Pressure [Right] O2 Sat by Pulse 100 99 99 Oximetry 02/11/21 02/11/21 02/11/21 09:26 09:31 09:36 Temperature Pulse Rate 89 85 87 Respiratory Rate Blood Pressure Blood Pressure [Right] O2 Sat by Pulse 99 99 99 Oximetry 02/11/21 02/11/21 02/11/21 09:41 09:47 09:52 Temperature Pulse Rate 82 82 78 Respiratory Rate Blood Pressure Blood Pressure [Right] O2 Sat by Pulse 99 99 99 Oximetry 02/11/21 02/11/21 02/11/21 09:57 10:02 10:07 Temperature Pulse Rate 91 H 89 74 Respiratory Rate Blood Pressure Blood Pressure [Right] O2 Sat by Pulse 99 98 98 Oximetry 02/11/21 02/11/21 02/11/21 10:12 10:16 10:28 Temperature Pulse Rate 93 H 77 Respiratory Rate Blood Pressure 139/92 Blood Pressure [Right] O2 Sat by Pulse 98 63 L Oximetry 02/11/21 02/11/21 02/11/21 10:29 10:33 10:38 Temperature Pulse Rate 73 98 H 104 H Respiratory Rate Blood Pressure Blood Pressure [Right] O2 Sat by Pulse 65 L 99 98 Oximetry 02/11/21 02/11/21 02/11/21 10:43 10:46 10:48 Temperature Pulse Rate 89 89 79 Respiratory Rate Blood Pressure 119/84 Blood Pressure [Right] O2 Sat by Pulse 99 100 Oximetry 02/11/21 02/11/2121 10:53 10:58 11:03 Temperature Pulse Rate 82 82 72 Respiratory Rate Blood Pressure Blood Pressure [Right] O2 Sat by Pulse 100 99 99 Oximetry 02/11/21 02/11/21 02/11/21 11:08 11:13 11:16 Temperature Pulse Rate 67 85 75 Respiratory Rate Blood Pressure 141/90 Blood Pressure [Right] O2 Sat by Pulse 99 99 Oximetry 02/11/21 02/11/21 02/11/21 11:18 11:23 11:28 Temperature Pulse Rate 72 83 84 Respiratory Rate Blood Pressure Blood Pressure [Right] O2 Sat by Pulse 99 98 98 Oximetry 02/11/21 02/11/21 02/11/21 11:33 11:38 11:39 Temperature 98.3 F Pulse Rate 83 69 75 Respiratory 14 Rate Blood Pressure Blood Pressure 127/78 [Right] O2 Sat by Pulse 99 100 100 Oximetry 02/11/21 02/11/21 02/11/21 11:40 11:43 11:45 Temperature Pulse Rate 78 73 82 Respiratory Rate Blood Pressure 127/78 115/64 Blood Pressure [Right] O2 Sat by Pulse 99 Oximetry 02/11/21 02/11/21 02/11/21 11:48 11:53 11:58 Temperature Pulse Rate 86 98 H 77 Respiratory Rate Blood Pressure Blood Pressure [Right] O2 Sat by Pulse 100 99 100 Oximetry 02/11/21 02/11/21 02/11/21 12:03 12:08 12:13 Temperature Pulse Rate 99 H 84 72 Respiratory Rate Blood Pressure Blood Pressure [Right] O2 Sat by Pulse 99 99 97 Oximetry 02/11/21 02/11/21 02/11/21 12:15 12:18 12:23 Temperature Pulse Rate 107 H 80 72 Respiratory Rate Blood Pressure 134/63 Blood Pressure [Right] O2 Sat by Pulse 96 100 Oximetry 02/11/21 02/11/21 02/11/21 12:28 12:33 12:38 Temperature Pulse Rate 98 H 68 64 Respiratory Rate Blood Pressure Blood Pressure [Right] O2 Sat by Pulse 100 100 100 Oximetry 02/11/21 02/11/21 02/11/21 12:43 12:45 12:51 Temperature Pulse Rate 97 H 69 87 Respiratory Rate Blood Pressure 139/93 Blood Pressure [Right] O2 Sat by Pulse 99 99 Oximetry 0702/11/21 02/11/21 12:56 13:01 13:06 Temperature Pulse Rate 69 83 68 Respiratory Rate Blood Pressure Blood Pressure [Right] O2 Sat by Pulse 100 100 100 Oximetry 02/11/21 02/11/21 02/11/21 13:11 13:15 13:16 Temperature Pulse Rate 77 70 86 Respiratory Rate Blood Pressure 128/84 Blood Pressure [Right] O2 Sat by Pulse 100 100 Oximetry 02/11/21 02/11/21 02/11/21 13:21 13:26 13:31 Temperature Pulse Rate 68 87 67 Respiratory Rate Blood Pressure Blood Pressure [Right] O2 Sat by Pulse 100 100 100 Oximetry 02/11/21 02/11/21 02/11/21 13:38 13:43 13:45 Temperature Pulse Rate 66 73 76 Respiratory Rate Blood Pressure 122/85 Blood Pressure [Right] O2 Sat by Pulse 91 100 Oximetry 02/11/21 02/11/21 02/11/21 13:48 13:53 13:58 Temperature Pulse Rate 74 79 78 Respiratory Rate Blood Pressure Blood Pressure [Right] O2 Sat by Pulse 100 100 100 Oximetry 02/11/21 02/11/21 02/11/21 14:03 14:08 14:13 Temperature Pulse Rate 68 77 86 Respiratory Rate Blood Pressure Blood Pressure [Right] O2 Sat by Pulse 100 100 100 Oximetry 02/11/21 02/11/21 02/11/21 14:15 14:18 14:23 Temperature Pulse Rate 79 68 73 Respiratory Rate Blood Pressure 128/93 Blood Pressure [Right] O2 Sat by Pulse 100 100 Oximetry 02/11/21 02/11/21 02/11/21 14:28 14:32 14:33 Temperature Pulse Rate 71 87 73 Respiratory Rate Blood Pressure Blood Pressure [Right] O2 Sat by Pulse 100 75 L 100 Oximetry 02/11/21 02/11/21 02/11/21 14:38 14:43 14:45 Temperature Pulse Rate 76 71 68 Respiratory Rate Blood Pressure 123/81 Blood Pressure [Right] O2 Sat by Pulse 100 100 Oximetry 02/11/21 02/11/21 02/11/21 14:48 14:53 14:58 Temperature Pulse Rate 66 74 68 Respiratory Rate Blood Pressure Blood Pressure [Right] O2 Sat by Pulse 99 100 100 Oximetry 02/11/21 02/11/21 02/11/21 15:03 15:08 15:13 Temperature Pulse Rate 69 75 75 Respiratory Rate Blood Pressure Blood Pressure [Right] O2 Sat by Pulse 100 100 100 Oximetry 02/11/21 02/11/21 02/11/21 15:16 15:18 15:23 Temperature Pulse Rate 70 67 75 Respiratory Rate Blood Pressure 124/71 Blood Pressure [Right] O2 Sat by Pulse 100 100 Oximetry 02/11/21 02/11/21 02/11/21 15:28 15:33 15:38 Temperature Pulse Rate 77 73 79 Respiratory Rate Blood Pressure Blood Pressure [Right] O2 Sat by Pulse 100 100 100 Oximetry 02/11/21 02/11/21 02/11/21 15:43 15:44 15:46 Temperature Pulse Rate 76 68 76 Respiratory Rate Blood Pressure 140/78 Blood Pressure [Right] O2 Sat by Pulse 100 88 Oximetry 02/11/21 02/11/21 15:48 15:56 Temperature Pulse Rate 75 62 Respiratory Rate Blood Pressure Blood Pressure [Right] O2 Sat by Pulse 100 99 Oximetry - Exam Breasts: deferred Abdomen: Present: soft (obese, gravid ) Uterus: Present: normal (gravid ) FHR: auscultation normal Uterine Contraction Monitor Mode: External Cervical Dilatation: 3 (per RN) Uterine Contraction Pattern: Irregular Uterine Tone Measurement Phase: Resting Uterine Contraction Intensity: Mild Extremities: edema (trace) - Labs Labs: Abnormal Labs 02/10/21 02/10/21 16:50 16:50 RBC 3.61 L Hct 30.1 L Crossmatch See Detail Laboratory Results - last 24 hr 02/10/21 02/10/21 02/11/21 16:50 16:50 09:16 WBC 8.0 RBC 3.61 L Hgb 10.3 Hct 30.1 L MCV 84 MCH 29 MCHC 34 RDW 13.4 Plt Count 248 Coronavirus (PCR) Negative Blood Type O POSITIVE Antibody Screen Negative Crossmatch See Detail
[2021-02-12] MEDS: miSOPROStol 25 MCG TAB PO SCH ×2 (00:04→03:59)
[2021-02-12] MEDS: OXYTOCIN DRIP 30 UNITS/500 ML BAG IV SCH (10:50)
--- NOTE | 2021-02-12 10:52 | Event Note ---
Date: 02/12/21 Pt comfortable with contractions. Category II tracing. AROM- copious thin meconium stained fluid. SVE: /-3. Cloesly monitor maternal and status.
--- NOTE | 2021-02-12 14:08 | Anesthesia Consultation ---
Anesthesia Consult and Med Hx Date of service: 02/12/21 - Airway Anesthetic Teeth Evaluation: Good ROM Head & Neck: Adequate Mental/Hyoid Distance: Adequate Mallampati Class: Class II Intubation Access Assessment: Probably Good - Pulmonary Exam CTA: Yes - Cardiac Exam Cardiac Exam: RRR - Pre-Operative Health Status ASA Pre-Surgery Classification: ASA2 Proposed Anesthetic Plan: Epidural - Pulmonary Hx Smoking: No Hx Asthma: No COPD: No Hx Pneumonia: No - Cardiovascular System Hx Hypertension: No - Central Nervous System Hx Seizures: No Hx Psychiatric Problems: No - Gastrointestinal Hx Gastroesophageal Reflux Disease: No - Endocrine Hx Renal Disease: No Hx End Stage Renal Disease: No Hx Hypothyroidism: No Hx Hyperthyroidism: No - Hematic Hx Anemia: No Hx Sickle Cell Disease: No - Other Systems Hx Alcohol Use: No Hx Obesity: Yes
--- NOTE | 2021-02-12 14:29 | Progress Note ---
Labor Epidural - Labor Epidural Start Time: 14:15 Stop Time: 14:24 Performed by:: JAMAL CHAMORRO Procedure: Patient is requesting epidural for labor pain. H&P, and labs reviewed. Procedure explained, questions answered, consent obtained. Patient in sitting position with blood pressure cuff and pulse ox on and working. Timeout performed immediately before start of procedure. Sterile chlorahexadine 0.5% prep/drape. 3 mL 1% lidocaine skin wheal at L[3]-L[4]. 18-gauge [employer] epidural needle advanced to [id number] with saline at [7] cm. Epidural catheter advanced to [12] cm, negative aspiration for blood and csf, negative test dose 3 ml 1.5% lidocaine with epinephrine. Epidural dexmedetomidine [30] mcg administered. Sterile steri-strips and tegaderm applied, followed by tape reinforcement. Patient tolerated procedure well. Adiel RM
[2021-02-12] MEDS ORDERED: NALOXONE 2 MG/2 ML INJ IV PRN (14:30)
[2021-02-12] MEDS ORDERED: ePHEDrine SULFATE 50 MG/1 ML INJ IV PRN (14:30)
[2021-02-12] MEDS ORDERED: fentaNYL-BUPIV 2 MCG/ML-0.125% 200 MCG/100 ML BAG EPIDURAL SCH (15:00)
[2021-02-12] MEDS: LACTATED RINGERS 1,000 ML IV SCH ×2 (15:30→15:34)
--- NOTE | 2021-02-12 17:25 | Procedure Note ---
OB Delivery Note - Delivery Date of Delivery: 02/12/21 Surgeon: JOJO ENGLAND - Vaginal Delivery presentation: vertex Delivery position: OA Intrapartum events: PROM->1hr before delivery, mult.variable deceleratio Delivery induction: misoprostol Delivery augmentation: rupture of membranes, pitocin Delivery monitor: external FHT, external uterine Route of delivery: Delivery placenta: spontaneous Episiotomy: none Delivery laceration: 2nd degree (repaired with 3-0 Vicryl in a standard fashion ), other (Right periurethral, hemostatic without repair ) Delivery repair: vicryl Anesthesia: epidural - Infant A at 1 minute: 8 at 5 minutes: 9 Infant Gender: Female (3040g (6lb 11oz) @ 1705 pm)
[2021-02-12] MEDS ORDERED: PROMETHAZINE 25 MG RECT SUPP PR PRN (20:57)
[2021-02-12] MEDS ORDERED: LANOLIN/ZINC/DIMETHICONE (LANSINOH) 7 GM TP PRN ×2 (20:57→21:30)
[2021-02-12] MEDS ORDERED: PROMETHAZINE 25 MG TAB PO PRN (20:57)
[2021-02-12] MEDS ORDERED: BENZOCAINE/MENTHOL 20/0.5% TOP SPRAY 56 GM TP PRN (21:30)
[2021-02-12] MEDS ORDERED: HYDROcodone/ACETAMINOPHEN 5-325 MG TAB PO PRN (21:30)
[2021-02-12] MEDS ORDERED: WITCH HAZEL/ GLYCERIN PAD TP PRN (21:30)
[2021-02-12] MEDS ORDERED: diphenhydrAMINE 25 MG CAP PO PRN (21:30)
[2021-02-12] MEDS ORDERED: ONDANSETRON 4 MG/2 ML INJ IV PRN (21:30)
[2021-02-12] MEDS ORDERED: MAGNESIUM HYDROXIDE (MOM) ORAL LIQD UDC PO PRN (21:30)
[2021-02-12] MEDS ORDERED: OXYTOCIN DRIP 30 UNITS/500 ML BAG IV SCH (21:57)
[2021-02-12] MEDS: FERROUS SULFATE 325 MG TAB PO SCH (22:45)
[2021-02-12] MEDS: IBUPROFEN 600 MG TAB PO SCH (22:45)
[2021-02-13] MEDS: IBUPROFEN 600 MG TAB PO SCH ×3 (05:23→21:26)
[2021-02-13] MEDS ORDERED: TETANUS,DIPH,PERTUSS(ACELL) VACCINE 0.5 ML SYRINGE IM ONE (06:00)
[2021-02-13 08:30] LABS: Hematocrit 26.4 % (30.3-42.9); Hemoglobin 9.1 gm/dl (10.1-14.3)
--- NOTE | 2021-02-13 11:19 | Post Anesthesia Evaluation ---
- Post Anesthesia Evaluation Patient Participated: Yes Airway Patent: Yes Stable Respiratory Function: Yes Nausea/Vomiting: No Temp > 96.8F: Yes Pain Manageable: Yes Adequeate Hydration: Yes Anesthesia Complications: No Block Receding Appropriately: Yes
[2021-02-13] MEDS: FERROUS SULFATE 325 MG TAB PO SCH ×2 (12:17→21:26)
--- NOTE | 2021-02-13 15:46 | Discharge Summary ---
Providers - Providers Date of Admission: 02/10/21 15:12 Date of discharge: 02/13/21 (Conditional: December d/c today if baby is discharged also) Attending physician: JOJO ENGLAND 02/12/21 20:57 Consult to Blending Kettle Tender [CONS] Routine Reason For Exam: assistance with , SNS Primary care physician: JOJO ENGLAND Hospitalization Reason for admission: induction of labor Delivery: Episiotomy: none Laceration: 2nd degree (healing as expected) Other procedures: none complications: none Discharge diagnosis: IUP at term delivered baby: female Hospital course: 25 yo, @ 37 weeks gestation, initiated care with [facility] at 11 weeks gestation. 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 Care was co-managed by [facility] specialist. She presents to [facility] today for scheduled IOL. Reports positive FM. Denies VB or LOF. Labs: O+, antibody negative; Rubella immune; HBsAg negative; GC/ Chlamydia negative; HIV negative; Panorama low risk; 1 hr gtt - 103; HSV2 negative; GBS positive. Condition at discharge: Good Disposition: DC-01 TO HOME OR SELFCARE - Discharge Diagnoses (1) Status post normal vaginal delivery Status: Acute (2) Anemia Status: Acute Qualifiers: Anemia type: iron deficiency Comment: Asymptomatic Increase iron rich foods into diet Plan - Discharge Medications Prescriptions: Ibuprofen [Motrin 600 MG tab] 600 mg PO Q8H 7 Days #21 tablet - Provider Discharge Summary Activity: routine, no sex for 6 weeks, no heavy lifting 4 weeks, no strenuous exercise Diet: other (Iron rich diet) Instructions: routine Additional instructions: [] Smoking cessation referral if applicable(refer to patient education folder for contact #) [] Refer to [facility] Booklet Call your doctor immediately for: * Fever > 100.5 * Heavy vaginal bleeding ( >1 pad per hour) * Severe persistent headache * Shortness of breath * Reddened, hot, painful area to leg or breast * Drainage or odor from incision. * Keep laceration site clean and dry at all times and follow doctor's instr uctions regarding bathing/showering - Follow up plan Follow up: JOJO ENGLAND MD [Primary Care Provider] - 6 Weeks
[2021-02-13] MEDS ORDERED: medroxyPROGESTERone ACETATE 150 MG/ML SYRINGE IM ONE (16:30)
[2021-02-13] MEDS ORDERED: MEASLES, MUMPS & RUBELLA 12,500 UNIT/0.5 ML VACCINE SUB-Q ONE (17:26)
[2021-02-14] MEDS: IBUPROFEN 600 MG TAB PO SCH ×4 (05:17→17:21)
[2021-02-14] MEDS: FERROUS SULFATE 325 MG TAB PO SCH (10:32)
[2021-02-14 17:12] VITALS: BP 137/79
[2021-02-14] MEDS ORDERED: medroxyPROGESTERone ACETATE 150 MG/ML SYRINGE IM ONE (17:18)
== END 2021-02-14 19:29 | disposition home or self-care (01) | DRG 775 ==
LOC: LD 15:12 → OB 02-12 20:20
PROVIDERS: ADMIT Obstetrics & Gynecology; ATTEND Obstetrics & Gynecology
PROC: 10E0XZZ Delivery of Products of Conception, External Approach (ICD-10-PCS; principal; 2021-02-12)
PROC: 0KQM0ZZ Repair Perineum Muscle, Open Approach (ICD-10-PCS; 2021-02-12)
PROC: 3E0R3BZ Introduction of Anesthetic Agent into Spinal Canal, Percutaneous Approach (ICD-10-PCS; 2021-02-12)
PROC: 00HU33Z Insertion of Infusion Device into Spinal Canal, Percutaneous Approach (ICD-10-PCS; 2021-02-12)
PROC: 10907ZC Drainage of Amniotic Fluid, Therapeutic from Products of Conception, Via Natural or Artificial Opening (ICD-10-PCS; 2021-02-12)
PROC: 3E0234Z Introduction of Serum, Toxoid and Vaccine into Muscle, Percutaneous Approach (ICD-10-PCS; 2021-02-13)
PROC: 3E0134Z Introduction of Serum, Toxoid and Vaccine into Subcutaneous Tissue, Percutaneous Approach (ICD-10-PCS; 2021-02-13)
DX: O99.824 Streptococcus B carrier state complicating childbirth (principal); O76 Abnormality in fetal heart rate and rhythm complicating labor and delivery; O70.1 Second degree perineal laceration during delivery; O71.82 Other specified trauma to perineum and vulva; O99.214 Obesity complicating childbirth; O77.0 Labor and delivery complicated by meconium in amniotic fluid; Z20.822 Contact with and (suspected) exposure to COVID-19; Z3A.37 37 weeks gestation of pregnancy; Z37.0 Single live birth; Z83.3 Family history of diabetes mellitus; Z79.82 Long term (current) use of aspirin; Z79.899 Other long term (current) drug therapy; Z23 Encounter for immunization
CPT/HCPCS: 36415; 85014; 85018; 85027; 86850; 86900; 86901; 86920; 88307; G0378; J0290; J1050; J2590; J7120; U0003